=== PATIENT | male | born 1985 | race Caucasian/White ===

== ENCOUNTER 2024-11-28 18:21 | Emergency (ER) | payer OTHER ==
[2024-11-28 18:32] VITALS: TEMP 98.5; BMI 32.9
[2024-11-28] MEDS: LACTATED RINGERS SOLUTION 1,000 ML/1,000 ML INFUS.BAG IV SCH (20:22)
[2024-11-28 20:28] LABS: BASOPHILS # 0.02 x10^3/uL (0.01-0.08)
[2024-11-28 20:55] LABS: CO2 26 mmol/L (21-32)
[2024-11-28 20:57] LABS: CREATININE 0.9 mg/dL (0.55-1.3); SGOT/AST 110 U/L (15-37); SGPT/ALT 70 U/L (13-61)
[2024-11-28 21:00] LABS: ALK PHOS 110 U/L (45-117); TOT PROT 8.1 g/dl (6.4-8.2)
[2024-11-28 21:02] LABS: GLUCOSE,RANDOM 438 mg/dL (74-106)
[2024-11-28 21:30] LABS: MEAN CELL VOLUME 94.0 fl (79.0-92.2); MONOCYTE # 0.58 x10^3/uL (0.30-0.82)
[2024-11-28 21:32] LABS: ABSOLUTE IMMATURE GRANULOCYTES 0.04 x10^3/uL (0.0-0.031); EOSINOPHIL % 0.3 % (0.8-7.0); EOSINOPHILS # 0.02 x10^3/uL (0.04-0.54); IMMATURE PLATELET FRACTION # 4.80 x10^3/uL; MCHC 37.5 g/dl (32.3-36.5); MEAN PLT VOLUME 10.4 fl (9.4-12.4); MONOCYTE % 7.7 % (5.3-12.2); RDW 12.3 % (12.0-15.6)
[2024-11-28] MEDS ORDERED: INSULIN ASPART SLIDING SCALE (NOVOLOG) 1 VIAL SQ ONE (22:17)
[2024-11-28] MEDS: INSULIN (NOVOLOG) ASPART 100 UNITS/ML 10ML VIAL SQ ONE (22:34)
[2024-11-28 22:55] LABS: BG HCT 48.0 % (35.4-49); VENOUS BASE EXCESS -1.7 mmol/L (-2-2); VENOUS O2 SATURATION 87.4 % (70-80); VENOUS PCO2 34.6 mmHg (38-52); VENOUS PH 7.42 (7.310-7.410)
[2024-11-29 00:37] LABS: HCV DIAGNOSTIC IN-HOUSE W/RFLX NON-REACTIVE (NONREACTIVE)
[2024-11-29 00:42] LABS: HIV INTERPRETATION NEGATIVE (NEGATIVE)
[2024-11-29 00:46] VITALS: PULSE 81; RESP 18
[2024-11-29] MEDS: SODIUM CHLORIDE 0.9% 500 ML INFUS.BAG IV ONE (00:46)
[2024-11-29 01:34] VITALS: BP 97/65
== END 2024-11-29 01:43 | disposition home or self-care (01) ==
LOC: JER 18:21
DX: R42 Dizziness and giddiness (principal); R11.2 Nausea with vomiting, unspecified; R25.3 Fasciculation
CPT/HCPCS: 36415; 80053; 82010; 82803; 82962; 85025; 86803; 87389; 99283-25